=== PATIENT | male | born 1950 | race African-American/Black ===

== ENCOUNTER 2016-12-19 11:08 | Inpatient (IN) | payer OTHER ==
[~2016-12-19] VITALS: Ht 175.3 cm; Wt 93.0 kg
[2016-12-19 11:24] VITALS: BP 153/82; PULSE 80; RESP 20; TEMP 97; O2SAT 95
--- NOTE | 2016-12-19 11:32 | NUR ---
Pt placed to ER waiting room in stable condition with family member.
--- NOTE | 2016-12-19 11:54 | NUR ---
Pt placed to ER bed 07 and to gown. Pt report given to MONIQUE Correa.
[2016-12-19] MEDS ORDERED: NS 500 ML IV SCH (13:09)
--- NOTE | 2016-12-19 13:23 | NUR ---
IV WAS STARTED ON LEFT FOREARM 20G, FLUSHED WELL WITH NO NOTED INFILTRATION. PATIENT IS ALERT AND ORIENTED IN STABLE CONDITION AT THIS TIME.
--- NOTE | 2016-12-19 13:23 | NUR ---
ER at bedside examining patient.
[2016-12-19 13:33] LABS: BASOPHILS % (AUTO) 0.3 % (0.0-2.0); EOSINOPHILS # (AUTO) 0.1 K/uL (0.0-0.4); EOSINOPHILS % (AUTO) 1.5 % (0.0-4.0); LYMPHOCYTES # (AUTO) 1.8 K/uL (1.0-5.5); LYMPHOCYTES % (AUTO) 17.8 % (20.5-51.5); MEAN CORPUSCULAR HEMOGLOBIN 27 pg (27-31); MEAN CORPUSCULAR HGB CONC 33 % (32-36); MEAN CORPUSCULAR VOLUME 83 fL (79.0-98.0); MONOCYTES # (AUTO) 0.9 K/uL (0.0-1.0); MONOCYTES % (AUTO) 9.2 % (1.7-9.3); NEUTROPHILS # (AUTO) 7.1 K/uL (1.8-7.7); NEUTROPHILS % (AUTO) 71.2 % (40.0-70.0); PLATELET COUNT (AUTO) 240 K/uL (130-430); RED BLOOD CELL COUNT(AUTO) 2.53 MIL/uL (4.2-6.2); WHITE BLOOD COUNT (AUTO) 9.9 K/uL (4.8-10.8)
[2016-12-19 13:39] LABS: HEMOGLOBIN 6.9 g/dL (14.0-18.0)
--- NOTE | 2016-12-19 13:40 | NUR ---
Pt off the unit for CT
[2016-12-19 13:42] LABS: CALCIUM 8.3 mg/dL (8.4-11.0); CREATININE 2.11 mg/dL (0.55-1.30); POTASSIUM 4.3 mmol/L (3.5-5.1)
[2016-12-19 13:44] LABS: PROTHROMBIN TIME 11.3 SECS (9.5-12.5)
[2016-12-19 13:46] LABS: ALBUMIN 3.1 g/dL (3.4-4.8); TOTAL BILIRUBIN 0.3 mg/dL (0.0-1.0); TOTAL PROTEIN, SERUM 6.3 g/dL (6.4-8.3)
[2016-12-19] MEDS ORDERED: ATEN50TA PO (15:13)
[2016-12-19] MEDS ORDERED: FENO150C4 PO (15:13)
[2016-12-19] MEDS ORDERED: NPH,100V SUBCUT (15:13)
[2016-12-19] MEDS ORDERED: POTA20TA83 PO (15:13)
[2016-12-19] MEDS ORDERED: ISOS30TA PO (15:13)
[2016-12-19] MEDS ORDERED: HYDR100T25 PO (15:13)
[2016-12-19] MEDS ORDERED: BENA20TA2 PO (15:13)
[2016-12-19] MEDS ORDERED: FURO40SO5 PO (15:13)
[2016-12-19] MEDS ORDERED: INSU100V7 SUBCUT (15:13)
[2016-12-19] MEDS ORDERED: HYDR-3111 PO (15:13)
[2016-12-19] MEDS ORDERED: AMLO10TA88 PO (15:13)
[2016-12-19] MEDS ORDERED: ASPI81TA2 PO (15:13)
[2016-12-19] MEDS ORDERED: MORP20SY PO (15:13)
[2016-12-19] MEDS ORDERED: PRAV40TA63 PO (15:13)
[2016-12-19] MEDS ORDERED: GABA300S PO (15:13)
--- NOTE | 2016-12-19 15:13 | NUR ---
Medication reconciliation completed with information provided by patient . Any prior medication reconciliation on file was reviewed and corrected.
--- NOTE | 2016-12-19 15:20 | NUR ---
Patient will be admitted to care of Dr Rossi . Admitted to Tele in unit. Will go to room 119B . Belongings list completed. Summary report printed. Report given to Abner AMAYA
--- NOTE | 2016-12-19 15:30 | NUR ---
ADMISSION NOTE Received patient from ER via gurney. Patient admitted with diagnosis of GI bleed. Patient is awake, alert, oriented X 4. Patient oriented to hospital room, call light, toileting, pain management and safety-teach back done. Patient informed that Sunny will be RN nurse and that their room number is 118B. Personal belongings checked and Belongings List documented. Call light within reach.
--- NOTE | 2016-12-19 16:01 | NUR ---
GI Consult: Dr. Durbin on floor and aware of consult. (GI bleed/Dr. Sanchez)
[2016-12-19 16:13] VITALS: BP 155/87; PULSE 76; RESP 18; TEMP 98.3; O2SAT 97
[2016-12-19 16:48] LABS: BILIRUBIN,URINE NEGATIVE (NEGATIVE); BLOOD, URINE NEGATIVE (NEGATIVE); CLARITY/URINE CLEAR (CLEAR); COLOR,URINE YELLOW (YELLOW); GLUCOSE,URINE NEGATIVE (NEGATIVE); KETONES,URINE NEGATIVE (NEGATIVE); LEUKOCYTE ESTERASE ,URINE NEGATIVE (NEGATIVE); NITRITE, URINE NEGATIVE (NEGATIVE); PH,URINE 5.5 (5.0-8.0); PROTEIN URINE NEGATIVE (NEGATIVE); UROBILINOGEN,URINE 0.2 (0.2-1.0)
[2016-12-19] MEDS ORDERED: DEXTROSE 50% JECT 50 ML DISP.SYRIN IVP PRN (17:00)
[2016-12-19] MEDS ORDERED: BISACODYL 5 MG TABLET.DR (DULCOLAX) PO ONE (17:00)
[2016-12-19] MEDS ORDERED: INSULIN REGULAR, HUMAN 100 UNITS/ML, 10 ML VIAL (novoLIN R) SUBCUT PRN (17:00)
[2016-12-19] MEDS: D5NS 1,000 ML IV SCH (17:29)
--- NOTE | 2016-12-19 17:30 | NUR ---
NOTES PT IN BED, PT ALERT AND ORIENTED, REMINDED PT THAT HE WILL GET BLOOD TRANSFUSION TONIGHT AND ALSO WILL BE NPO AT MIDNIGHT IN PREPARATION FOR HIS COLONOSCOPY IN AM. PT VERBALIZED UNDERSTANDING.
[2016-12-19] MEDS ORDERED: GOLYTELY / COLYTE SOLUTION 4 LITERS PO ONE (18:00)
--- NOTE | 2016-12-19 18:12 | NUR ---
BLOOD SUGAR Blood sugar was checked and read 58. It was rechecked and the new value was 68. Patient is slightly lethargic, but otherwise nonsymptomatic. Patient D50 given as per PRN orders. Will continue to monitor.
--- NOTE | 2016-12-19 18:24 | NUR ---
CLOSING NOTES PT IN BED, GIVEN D50 50 ML FOR BS OF 68 EARLIER, BLOOD SUGAR THIS TIME IS 265. PT REMAINS ALERT AND ORIENTED, IV FLUID RUNNING WELL. PT STARTED GOLYTELY. WILL ENDORSE TO NIGHT RN.
--- NOTE | 2016-12-19 20:00 | NUR ---
Initial note A/O x 3, no SOB, no chest pain, c/o back pain @5/10. Skin warm to touch, IV at L AC, continued D5 NS @ 100 ml/hr. +1 edema bilateral feet with +2 pedal pulses. Patient needed one person assistance/supervision for ambulation. Clear lung sounds and active bowel sounds. Patient will have colonoscopy tomorrow (12/20/2016). Patient is taking Golytely, and had bloody liquid stools. Patient is aware he will be NPO after midnight. Due to HgB 6.9, patient is aware he will receive 2 units blood transfusion. Call light within reach, education provided, will continue to monitor patient.
--- NOTE | 2016-12-19 21:05 | NUR ---
First PRBC started. No reaction noted at 2049 and 2104. Informed patient to use call light for BSC use or any other concern. Call light within reach. Will continue to monitor patient.
[2016-12-19 21:09] VITALS: BP 177/92; PULSE 98; RESP 18; TEMP 98; O2SAT 97
[2016-12-19] MEDS: PANTOPRAZOLE SODIUM 40 MG/VIAL (PROTONIX) IVP SCH (21:38)
--- NOTE | 2016-12-19 21:39 | NUR ---
MD GIL CALLED [facility] AT SPOKE WITH DR.AZAB LUCIANO AMANY HANDS ASSEMBLER.
--- NOTE | 2016-12-19 22:00 | NUR ---
Initial note A/O x 3, no SOB, no chest pain, c/o back pain @5/10. Skin warm to touch, IV at L AC, continued D5 NS @ 100 ml/hr. Patient is taking Golytely, and had bloody liquid stools. Patient is aware he will be NPO after midnight. Blood transfusion continued, no reaction noted. Call light within reach, education provided, will continue to monitor patient.
--- NOTE | 2016-12-19 22:05 | NUR ---
Dr. Santillan called back regarding medications Orders: Clonidine 0.6 mg PO Q6H PRN for SBP > 160. Tylenol 650 mg O Q6H PRN for mild pain (1-3) or fever. Hydrocodone/Acetaminophen 7.5/325 mg PO Q12H PRN for moderate pain. Morphine 15 mg PO Q12H at 0000 and 1200. Patient is aware of the new orders.
[2016-12-19] MEDS ORDERED: ACETAMINOPHEN 325 MG TABLET PO PRN (22:15)
[2016-12-19] MEDS ORDERED: cloNIDine HCL 0.1 MG TABLET PO PRN (22:15)
[2016-12-19] MEDS ORDERED: MORPHINE SULFATE 15 MG TABLET.SA PO ONE (23:00)
--- NOTE | 2016-12-19 23:55 | NUR ---
Blood sugar 63 Patient denied any s/s of hypoglycemia. Patient stated he did not eat a lot today. Plumas juice (100 ml) x 2 and one Jell-O given. Will reassess patient blood sugar.
[2016-12-20] VITALS (7 sets, daily range): BP systolic 129–198; BP diastolic 81–104; PULSE 67–83; RESP 14–21; TEMP 97.6–98.8; O2SAT 96–99; Ht 175.3 cm; Wt 93.0 kg
--- NOTE | 2016-12-20 00:05 | NUR ---
Second PRBC Started second PRBC at 0005. Patient is aware of s/s of reactions. Still no s/s of hypoglycemia. Will stay with patient and monitor him.
--- NOTE | 2016-12-20 00:30 | NUR ---
Rounds Patient is resting in bed, but still went to BSC for BM. Bloody liquid BM noted. Rechecked blood sugar, 103. No s/s of hypoglycemia. Patient is aware he will be NPO through the night. Continued blood transfusion, no s/s of reactions. Call light within reach, will continue to monitor patient.
--- NOTE | 2016-12-20 02:05 | NUR ---
Rounds Patient is sleeping in bed. SN woke up patient, and patient stated he still went to BSC for BM once a while, and then patient went back to sleep. Some bloody liquid noted in the BSC. No s/s of hypoglycemia. Denied pain. Call light within reach, will continue to monitor patient.
[2016-12-20] MEDS: D5NS 1,000 ML IV SCH ×2 (03:18→22:46)
--- NOTE | 2016-12-20 04:15 | NUR ---
Rounds Patient is sleeping in bed. No SOB, no chest pain, no grimacing, no s/s of hypoglycemia. Call light within reach, will continue to monitor patient.
[2016-12-20] MEDS: hydrALAZINE HCL 20 MG/ML VIAL IVP PRN ×3 (06:18→20:51)
--- NOTE | 2016-12-20 06:20 | NUR ---
Closing note Patient is resting in bed. No SOB, no chest pain, denied pain, no s/s of hypoglycemia. Hydralazine IVP given due to BP 185/91. Patient is aware to be NPO and will have colonoscope later. Call light within reach, will give report to incoming nurse.
[2016-12-20 06:28] LABS: HEMATOCRIT 23.7 % (36-54)
[2016-12-20 06:36] LABS: INR 1.1 (0.80-1.20); PROTHROMBIN TIME 11.6 SECS (9.5-12.5)
[2016-12-20 07:40] LABS: IRON (SERUM) 51 mcg/dL (59-158); TOTAL IRON BIND. CAPACITY 240 ug/dL (250-450)
--- NOTE | 2016-12-20 08:00 | NUR ---
AM Initial Notes Pt aaox4 with complaints of mild pain to back but feels comfortable. No distress noted. Pt is NPO for colonoscopy today. No bloody stools noted. Blood pressure is elevated 171/81. coil rewind machine operator in place. Will medicate with Clonidine. Educated with fall and safety precautions. Pt refused to have bed alarm armed because he frequently goes to the bathroom. Bedside commode in place also. Encouraged to call for assistance. Call light within reach. Will monitor.
[2016-12-20] MEDS: MORPHINE SULFATE 15 MG TABLET.SA PO SCH ×2 (08:57→20:33)
[2016-12-20] MEDS: cloNIDine HCL 0.1 MG TABLET PO PRN ×2 (08:57→18:41)
--- NOTE | 2016-12-20 09:00 | NUR ---
Education Medicated patient with scheduled 0900 medications. MS Contin was administered. Educated about fall and safety precautions. Encouraged to call for assistance. Call light within reach. Will monitor.
--- NOTE | 2016-12-20 10:00 | NUR ---
Resting Pt asleep. No signs of facial grimacing for pain or discomfort. No distress or active bleeding noted. Will monitor.
[2016-12-20] MEDS: PANTOPRAZOLE SODIUM 40 MG/VIAL (PROTONIX) IVP SCH ×2 (10:17→20:33)
[2016-12-20 10:54] LABS: CALCIUM 8.3 mg/dL (8.4-11.0); CREATININE 1.85 mg/dL (0.55-1.30); POTASSIUM 3.7 mmol/L (3.5-5.1)
[2016-12-20 10:58] LABS: ALBUMIN 2.8 g/dL (3.4-4.8); TOTAL BILIRUBIN 0.3 mg/dL (0.0-1.0); TOTAL PROTEIN, SERUM 5.7 g/dL (6.4-8.3)
[2016-12-20 11:02] LABS: HEMATOCRIT 26.8 % (36-54); HEMOGLOBIN 8.7 g/dL (14.0-18.0)
--- NOTE | 2016-12-20 12:00 | NUR ---
Rounds Pt asleep but easily awakened. No complaints of pain or discomfort unless with movement. No distress noted. Encouraged to call for assistance. Call light within reach. Will monitor.
[2016-12-20] MEDS ORDERED: MIDAZOLAM HCL 5 MG/5 ML VIAL ONE (12:23)
[2016-12-20] MEDS ORDERED: SIMETHICONE 40 MG/0.6 ML ML ONE (12:24)
--- NOTE | 2016-12-20 13:00 | NUR ---
Elevevated BP Pt has elevated blood pressure 198/90. Informed RN for Apresoline IV medication administration. Will monitor.
--- NOTE | 2016-12-20 14:41 | NUR ---
GI Lab Pt leaving floor via w/c to GI Lab for colonoscopy. No distress noted.
[2016-12-20] MEDS: MIDAZOLAM HCL 5 MG/5 ML VIAL ONE ×3 (15:59→16:09)
[2016-12-20] MEDS: fentaNYL CITRATE/PF 100 MCG/2 ML AMP ONE ×3 (15:59→16:07)
--- NOTE | 2016-12-20 16:45 | NUR ---
Back from GI Pt back from GI lab for colonoscopy. No complaints of pain or discomfort. No distress noted. Pt feels tired and wants to sleep and rest. Kept comfortable. Encouraged to call for assistance. Call light within reach.
[2016-12-20 17:42] LABS: HEMATOCRIT 26.3 % (36-54); HEMOGLOBIN 8.8 g/dL (14.0-18.0)
--- NOTE | 2016-12-20 18:40 | NUR ---
Closing notes Pt asleep but easily awakened. Administered Clonidine for elevated blood pressure. No active bleeding noted. Encouraged to call for assistance. Will endorse care to incoming nurse.
--- NOTE | 2016-12-20 19:30 | NUR ---
INITIAL NOTE Patient in bed at this time resting, respirations even and unlabored. No acute distress noted at this time. Family at bedside. IV site patent with no signs or symptoms of infiltration noted. Vital signs stable, increased blood pressure noted. Patient states his blood pressure always runs high. Call light in hand. Educated patient on using call light for assistance, verbalized understanding. Fall and safety precautions in place. Will continue to monitor.
[2016-12-20] MEDS: ANUSOL 1 EA SUPP.RECT (PREPARATION H) RC SCH (20:33)
--- NOTE | 2016-12-20 21:53 | NUR ---
BT INITIATION: Consent signed per patient agreeing to administration of blood. Blood has been type and crossmatched. Blood sent from blood bank. Information on unit of blood checked against patient wristband at bedside by two nurses. All information matches. Patient or responsible green party informed of potential complications associated with blood transfusion. Informed of possible transfusion reaction symptoms. Aware of need to notify nurse at once of itching, shortness of breath, flushing, feeling of impending doom, or other symptoms not previously present. Vital signs taken within 5 minutes prior to initiation of transfusion. RN will remain with patient for first 15 minutes of transfusion at which time vital signs will be re-assessed.
--- NOTE | 2016-12-20 22:08 | NUR ---
15 min blood transfusion Patient resting in bed at this time. Patient showing stable vital signs. No signs or symptoms of adverse reaction at this time. Denies any chills, flank pain, shortness of breath, etc. Call light in hand, educated patient on using call light for assistance. Fall and safety precautions in place. Will continue to monitor.
--- NOTE | 2016-12-21 00:30 | NUR ---
OPENING NOTES RECEIVED REPORT FROM LUCRETIA AT BEDSIDE. PATIENT RECEIVING BLOOD TRANSFUSION. PATIENT TOLERATING TRANSFUSION WELL. NO SIGNS OR SYMPTOMS OF ACUTE DISTRESS NOTED. BED IN LOWEST POSITION, BED ALARM ON, CALL LIGHT WITHIN REACH. WILL CONTINUE TO MONITOR FREQUENTLY.
--- NOTE | 2016-12-21 00:30 | NUR ---
RN NOTE Endorsed patient to edgardo AMAYA. Patient is still receiving bloods transfusion. Continues to tolerate well. Respirations even and unlabored. No acute distress noted at this time. Call light in hand. Fall and safety precautions in place.
[2016-12-21] MEDS: cloNIDine HCL 0.1 MG TABLET PO PRN ×2 (00:39→09:13)
--- NOTE | 2016-12-21 00:54 | NUR ---
BLOOD SUGAR ACCUCHECK PERFORMED, BLOOD SUGAR IS 140, DOES NOT REQUIRE COVERAGE. SKIN IS DRY AND WARM. NO SIGNS OF HYPOGLYCEMIA OR HYPERGLYCEMIA NOTED.
--- NOTE | 2016-12-21 01:00 | NUR ---
BLOODY STOOL PATIENT HAD BLOODY LOOSE STOOL. ASSISTED PATIENT BACK TO BED. BED ALARM SET, BED IN LOWEST POSITION, CALL LIGHT WITHIN REACH.
--- NOTE | 2016-12-21 01:16 | NUR ---
BLOOD TRANSFUSION COMPLETE BLOOD TRANSFUSION IS COMPLETE. PATIENT TOLERATED WELL. VITAL SIGNS ARE 125/63 bp, 75 hr, 97.5 TEMP, 100% O2, AND 20 rESPIRATIONS. VITAL SIGNS NO SIGNS OR SYMPTOMS OF ACUTE DISTRESS NOTED. PATIENT SLEEPING, AUDIBLE SNORING WITH VISIBLE RISE AND FALL OR CHEST. FALL PRECAUTIONS IN PLACE.
[2016-12-21 03:01] LABS: HEMOGLOBIN 7.9 g/dL (14.0-18.0)
--- NOTE | 2016-12-21 03:15 | NUR ---
ROUNDS PATIENT AWAKE AND ALERT. SITTING UP WATCHING TV AND IN GOOD SPIRITS. NO SIGNS OR SYMPTOMS OF DISTRESS NOTED. BED IN LOWEST POSITION, CALL LIGHT WITHIN REACH. WILL CONTINUE TO MONITOR.
[2016-12-21 03:44] VITALS: BP 150/84; PULSE 68; RESP 18; TEMP 97.2; O2SAT 98
--- NOTE | 2016-12-21 04:30 | NUR ---
ROUNDS PATIENT SLEEPING. RISE AND FALL OF CHEST VISIBLE, PATIENT SNORING. NO SIGNS OR SYMPTOMS OF DISTRESS NOTED. BED IN LOWEST POSITION, CALL LIGHT WITHIN REACH. WILL CONTINUE TO MONITOR.
--- NOTE | 2016-12-21 06:33 | NUR ---
NOTES DIRECTOR BEHAVIORAL HEALTH AT BEDSIDE WITH PATIENT. PATIENT SHOWS NO S/S OF DISTRESS NOTED. BED IN LOWEST POSITION, CALL LIGHT WITHIN IN REACH. ALL NEEDS MET THROUGHOUT SHIFT. WILL ENDORSE CARE TO DAY SHIFT NURSE.
--- NOTE | 2016-12-21 06:44 | NUR ---
brent Sanchez/ nancy H/H after transfusion H/H after one unit of PRBC's decreased to 7.9/23.0. Bridget, from exchange, brent AVELAR.
--- NOTE | 2016-12-21 06:57 | NUR ---
DR SARA RUIZ CALLED TO ORDER 2 UNITS PACKED RBC'S STAT.
--- NOTE | 2016-12-21 07:02 | NUR ---
CLOSING NOTE PATIENT IS RESTING. LINENS CHANGED. PRBC'S ORDERED. NO SIGNS OF ACUTE DISTRESS NOTED. WILL ENDORSE CARE TO DAY SHIFT NURSE.
--- NOTE | 2016-12-21 07:20 | NUR ---
Initial Note Received patient from police shift commander nurse, patient is alert and oriented x4, no signs of distress, no complaints of pain at this time, assessment complete, patient currently has IV on left forearm gauge 22, updated patient on plan to received 2 more units of blood, patient verbalized understanding, instructed patient to use call powell if assistance is needed, patient verbalized understanding, call powell left in patient's hand, bed in lowest position, two side rails up, fall precautions in place, will continue to monitor patient.
[2016-12-21 08:00] VITALS: BP 167/63; PULSE 77; RESP 16; TEMP 98.3; O2SAT 99
[2016-12-21 08:36] LABS: BASOPHILS % (AUTO) 0.3 % (0.0-2.0); EOSINOPHILS # (AUTO) 0.1 K/uL (0.0-0.4); EOSINOPHILS % (AUTO) 1.1 % (0.0-4.0); HEMATOCRIT 24.4 % (36-54); HEMOGLOBIN 7.9 g/dL (14.0-18.0); LYMPHOCYTES # (AUTO) 1.2 K/uL (1.0-5.5); LYMPHOCYTES % (AUTO) 16.4 % (20.5-51.5); MEAN CORPUSCULAR HEMOGLOBIN 27 pg (27-31); MEAN CORPUSCULAR HGB CONC 32 % (32-36); MEAN CORPUSCULAR VOLUME 85 fL (79.0-98.0); MONOCYTES # (AUTO) 0.4 K/uL (0.0-1.0); NEUTROPHILS # (AUTO) 5.8 K/uL (1.8-7.7); NEUTROPHILS % (AUTO) 76.2 % (40.0-70.0); PLATELET COUNT (AUTO) 205 K/uL (130-430); RED BLOOD CELL COUNT(AUTO) 2.89 MIL/uL (4.2-6.2); RED CELL DISTRIBUTION WIDTH 14.8 % (9.0-15.0); WHITE BLOOD COUNT (AUTO) 7.5 K/uL (4.8-10.8)
[2016-12-21] MEDS: PANTOPRAZOLE SODIUM 40 MG/VIAL (PROTONIX) IVP SCH ×2 (09:08→20:20)
[2016-12-21] MEDS: MORPHINE SULFATE 15 MG TABLET.SA PO SCH ×2 (09:08→20:20)
--- NOTE | 2016-12-21 09:15 | NUR ---
MEDICATIONS Morning medications given to patient, educated patient on potential side effects of medications, patient verbalized understanding, instructed patient to use call powell if assistance is needed, patient verbalized understanding, call powell left in patient's hand, bed in lowest position, two side rails up, fall precautions in place, will continue to monitor patient.
[2016-12-21 09:21] LABS: CALCIUM 8.5 mg/dL (8.4-11.0); CREATININE 1.9 mg/dL (0.55-1.30); POTASSIUM 3.9 mmol/L (3.5-5.1)
[2016-12-21 09:27] LABS: FOLATE (FOLIC ACID) 10.2 ng/mL (>3.0)
[2016-12-21] MEDS: hydrALAZINE HCL 20 MG/ML VIAL IVP PRN (10:43)
--- NOTE | 2016-12-21 10:45 | NUR ---
RN ROUNDS PATIENT'S BLOOD PRESSURE IS CURRENTLY ELEVATED, WILL GIVE PRN MEDICATIONS BEFORE STARTING BLOOD TRANSFUSION, PATIENT STATES THAT IT IS NORMAL FOR BLOOD PRESSURE TO BE ELEVATED, NO COMPLAINTS OF PAIN OR DISCOMFORT, NO SIGNS OF DISTRESS, CALL MULLER WITHIN REACH OF PATIENT'S HAND, BED ALARM ON, FALL PRECAUTIONS IN PLACE, WILL CONTINUE TO MONITOR PATIENT.
--- NOTE | 2016-12-21 11:40 | NUR ---
BT INITIATION: Consent signed per patient agreeing to administration of blood. Blood has been type and crossmatched. Blood sent from blood bank. Information on unit of blood checked against patient wristband at bedside by two nurses. All information matches. Patient informed of potential complications associated with blood transfusion. Informed of possible transfusion reaction symptoms. Aware of need to notify nurse at once of itching, shortness of breath, flushing, feeling of impending doom, or other symptoms not previously present. Vital signs taken within 5 minutes prior to initiation of transfusion. RN will remain with patient for first 15 minutes of transfusion at which time vital signs will be re-assessed.
[2016-12-21] MEDS: HYDROcodone/ACETAMIN 7.5-325 MG TAB PO PRN (11:48)
[2016-12-21 12:00] VITALS: BP 155/73; PULSE 76; RESP 18; TEMP 98.2; O2SAT 97
--- NOTE | 2016-12-21 13:10 | NUR ---
RN ROUNDS Patient is currently resting in bed, family member at bedside, patient is still receiving blood transfusion, tolerating well, no signs of distress, no complaints of pain or discomfort, call powell left in patient's hand, bed in lowest position, two side rails up, fall precautions in place, will continue to monitor patient.
--- NOTE | 2016-12-21 15:30 | NUR ---
RN ROUNDS PATIENT IS CURRENTLY RESTING IN BED, SECOND UNIT OF BLOOD IS CURRENTLY TRANSFUSING, PATIENT IS TOLERATING WELL, NO SIGNS DISCOMFORT, NO COMPLAINTS OF SOB OR PAIN, REINSTRUCTED PATIENT IF HE FEELS ANY DIFFERENT TO CALL, PATIENT VERBALIZED UNDERSTANDING, CALL MULLER WITHIN REACH OF PATIENT'S HAND, BED ALARM ON, FALL PRECAUTIONS IN PLACE, WILL CONTINUE TO MONITOR PATIENT.
--- NOTE | 2016-12-21 16:05 | NUR ---
RN ROUNDS BLOOD TRANSFUSION IS COMPLETE, POST TRANSFUSION VITALS TAKEN AND RECORDED, PATIENT TOLERATED WELL, NO SIGNS OF REACTION NOTED, PATIENT DOES NOT COMPLAIN OF ANY PAIN, DISCOMFORT OR SHORTNESS OF BREATH, WILL CONTINUE TO MONITOR PATIENT, FALL PRECAUTIONS IN PLACE,
[2016-12-21 16:45] VITALS: BP 174/60; PULSE 58; RESP 20; O2SAT 97
--- NOTE | 2016-12-21 17:43 | NUR ---
RN ROUNDS PATIENT IS CURRENTLY RESTING IN BED WITH EYES CLOSED, SECOND UNIT OF BLOOD IS STILL TRANSFUSING, PATIENT IS TOLERATING WELL, NO SIGNS OF DISCOMFORT, CALL MULLER WITHIN REACH OF PATIENT'S HAND, BED ALARM ON, FALL PRECAUTIONS IN PLACE, WILL CONTINUE TO MONITOR PATIENT.
--- NOTE | 2016-12-21 18:55 | NUR ---
CLOSING NOTE PATIENT IS CURRENTLY RESTING IN BED, NO SIGNS OF DISTRESS, NO COMPLAINTS OF PAIN, ALL NEEDS MET, WILL ENDORSE TO SOLAR INSTALLATION MANAGER NURSE THAT LAB IS COMING AROUND 1900 TO DRAW BLOOD FOR H&H, AND TO FOLLOW UP WITH LAB RESULTS, BED LEFT IN LOWEST POSITION, CALL MULLER WITHIN REACH, TWO SIDE RAILS UP, FALL PRECAUTION IN PLACE
[2016-12-21 19:29] LABS: HEMATOCRIT 24.3 % (36-54); HEMOGLOBIN 8.4 g/dL (14.0-18.0)
--- NOTE | 2016-12-21 20:00 | NUR ---
OPENING ASSESSMENT PATIENT ALERT/ORIENTEDX4. SPEECH IS CLEAR AND APPROPRIATE. STATES PAIN IS 4/10 IN BACK. HAS MS CONTIN ORDERED FOR 2100. DENIES DIZZINESS. LUNGS CLEAR BILATERALLY. O2 SAT. ON R/A IS 98%. NO SOB NOTED. HAS LFA 22 G IV SITE IS CLEAR AND PATENT. TOLERATING CLEAR LIQUID DIET, NO REDS, NO NAUSEA NOTED. VOIDING CLEAR YELLOW. FALL PRECAUTIONS. SIDE RAILS UP X2 WITH BED IN LOW POSITION. INFORMED PATIENT NOT TO GET OUT OF BED WITH ASSIST AND CALL NURSE FOR ALL NEEDS. CALL LIGHT WITHIN EASY ACCESS.
[2016-12-21] MEDS: ANUSOL 1 EA SUPP.RECT (PREPARATION H) RC SCH (20:20)
[2016-12-21 21:51] VITALS: BP 158/78; PULSE 79; RESP 18; TEMP 97.3; O2SAT 98
--- NOTE | 2016-12-21 21:59 | NUR ---
ROUNDS PATIENT RESTING QUIETLY @ THIS TIME. NO DISTRESS NOTED.
[2016-12-21 23:24] LABS: HEMATOCRIT 23.5 % (36-54)
[2016-12-21 23:43] VITALS: BP 155/77; PULSE 76; RESP 18; TEMP 97.4; O2SAT 96
--- NOTE | 2016-12-21 23:54 | NUR ---
NOTES PATIENT WITH SMALL BLOODY STOOL. DENIES DIZZINESS WHEN ON BEDSIDE COMMODE. PATIENT ASSISTED BACK IN BED. CONTINUES ON FALL PRECAUTIONS.
--- NOTE | 2016-12-22 00:05 | NUR ---
MD GIL CALLED [facility] AT SPOKE WITH DR.AZAB HILL AMANY VP AD [employer] AND [employer]ING.
--- NOTE | 2016-12-22 00:21 | NUR ---
DR. MARYLU VALERO NOTIFIED THAT PATIENTS HGB. @ 12/22 1919 WAS 8.4 AND @ 2314 HGB. WAS 8.0. ORDERED CBC FOR AM.
--- NOTE | 2016-12-22 01:54 | NUR ---
NOTES REPORT GIVEN TO HORACE AMAYA. PATIENT WITHOUT DISTRESS @ THIS TIME.
--- NOTE | 2016-12-22 02:00 | NUR ---
initial note pt. received aaox4. no s/s of sob or distress noted. iv access noted to left forearm 20 gauge, saline lock. no redness or swelling to the site. pt. able to ambulate with steady gait, with assistance. encouraged to call for assistance. verbalizes understanding. plan of care discussed. pt. verbalizes understanding. will continue to monitor for any changes. safety and fall precautions in place. call light in reach. bed in lowest, locked position.
[2016-12-22] MEDS: HYDROcodone/ACETAMIN 7.5-325 MG TAB PO PRN ×3 (02:27→21:55)
--- NOTE | 2016-12-22 02:33 | NUR ---
ROUNDS PT STATES HE IS HAVING LEFT LEG PAIN. MEDICATION GIVEN FOR PAIN, WILL REASSESS. ASSISTED PT. TO THE RESTROOM, ABLE TO AMBULATE WITH STEADY GAIT. SMALL AMOUNT OF BLOOD NOTED ON MONALISA PAD ON BED. PT. HAD ONE BM, BLOOD NOTED. PT. ASSISTED BACK TO BED. WILL CONTINUE TO MONITOR. SAFETY AND FALL PRECAUTIONS IN PLACE. CALL LIGHT IN REACH, BED IN LOWEST, LOCKED POSITION.
--- NOTE | 2016-12-22 04:00 | NUR ---
ROUNDS PROVIDED PT. WITH WARM TEA PER HIS REQUEST. STATES HE IS HAVING A HARD TIME FALLING ASLEEP, BUT THAT HE IS FEELING MUCH BETTER AT THIS MOMENT. WILL CONTINUE TO MONITOR FOR ANY CHANGES. SAFETY AND FALL PRECAUTIONS IN PLACE. CALL LIGHT IN REACH.
--- NOTE | 2016-12-22 04:50 | NUR ---
rn notes pt. MAR and order history show that pt. is to be receiving IV fluids, D5NS @ 100. Will start running fluids as ordered.
[2016-12-22] MEDS: D5NS 1,000 ML IV SCH ×2 (05:23→20:24)
[2016-12-22 05:32] VITALS: BP 127/79; PULSE 78; RESP 18; TEMP 96.9; O2SAT 99
--- NOTE | 2016-12-22 06:31 | NUR ---
CLOSING NOTE PT. RESTING QUIETLY IN BED. NO S/S OF SOB OR DISTRESS NOTED. PT. DENIES PAIN. MORNING ACCU CHECK DONE, BS WNL. NO COVERAGE NEEDED. IV FLUIDS INFUSING WELL ORDERED. ALL NECESSARY NEEDS WERE MET. SAFETY AND FALL PRECAUTIONS WERE MAINTAINED. WILL ENDORSE CARE TO AM NURSE. CALL LIGHT IN REACH. BED IN LOWEST, LOCKED POSITION.
[2016-12-22 08:00] VITALS: BP 157/89; PULSE 84; RESP 14; TEMP 97.6; O2SAT 99
--- NOTE | 2016-12-22 08:00 | NUR ---
Initial notes: pt awake,alert and oriented. Stable. Discussed plan of care. call light within reach. report received at bedside.
[2016-12-22] MEDS: PANTOPRAZOLE SODIUM 40 MG/VIAL (PROTONIX) IVP SCH ×2 (08:15→20:24)
[2016-12-22] MEDS: MORPHINE SULFATE 15 MG TABLET.SA PO SCH ×2 (08:15→20:25)
[2016-12-22 08:35] LABS: BASOPHILS % (AUTO) 0.3 % (0.0-2.0); EOSINOPHILS # (AUTO) 0.1 K/uL (0.0-0.4); EOSINOPHILS % (AUTO) 1.1 % (0.0-4.0); HEMOGLOBIN 7.9 g/dL (14.0-18.0); LYMPHOCYTES # (AUTO) 1.4 K/uL (1.0-5.5); LYMPHOCYTES % (AUTO) 19.2 % (20.5-51.5); MEAN CORPUSCULAR HEMOGLOBIN 30 pg (27-31); MEAN CORPUSCULAR HGB CONC 34 % (32-36); MEAN CORPUSCULAR VOLUME 87 fL (79.0-98.0); MONOCYTES # (AUTO) 0.4 K/uL (0.0-1.0); MONOCYTES % (AUTO) 5.1 % (1.7-9.3); NEUTROPHILS # (AUTO) 5.5 K/uL (1.8-7.7); NEUTROPHILS % (AUTO) 74.3 % (40.0-70.0); PLATELET COUNT (AUTO) 168 K/uL (130-430); RED BLOOD CELL COUNT(AUTO) 2.64 MIL/uL (4.2-6.2); RED CELL DISTRIBUTION WIDTH 14.5 % (9.0-15.0); WHITE BLOOD COUNT (AUTO) 7.4 K/uL (4.8-10.8)
--- NOTE | 2016-12-22 11:46 | NUR ---
Surgical Consult: for Dr. Ratliff, regarding g.i. bleed, ordered by Dr. Sanchez, spoke with Maggie.
[2016-12-22 12:49] VITALS: BP 152/89; PULSE 83; RESP 17; TEMP 98.3; O2SAT 98
--- NOTE | 2016-12-22 13:20 | NUR ---
BT INITIATION: Consent signed per agreeing to administration of blood. Blood has been type and crossmatched. Blood sent from blood bank. Information on unit of blood checked against patient wristband at bedside by two nurses. All information matches. Patient or responsible green party informed of potential complications associated with blood transfusion. Informed of possible transfusion reaction symptoms. Aware of need to notify nurse at once of itching, shortness of breath, flushing, feeling of impending doom, or other symptoms not previously present. Vital signs taken within 5 minutes prior to initiation of transfusion. RN will remain with patient for first 15 minutes of transfusion at which time vital signs will be re-assessed.
--- NOTE | 2016-12-22 13:35 | NUR ---
15 min after BT: pt on bed.no shortness of breath. no itchiness. continue to monitor.
[2016-12-22] MEDS: cloNIDine HCL 0.1 MG TABLET PO PRN ×2 (13:45→21:54)
--- NOTE | 2016-12-22 15:26 | NUR ---
Mary stern scan: pt wheeled via W/C to nuclear med with NIKOLAS and nurse.
--- NOTE | 2016-12-22 18:45 | NUR ---
room: pt back in his room. Blood sugar check. no insulin needed.
--- NOTE | 2016-12-22 19:30 | NUR ---
closing notes: pt on bed resting. no distress noted. needs attended. call light within reach. report given at bedside.
--- NOTE | 2016-12-22 19:48 | NUR ---
OPENING ASSESSMENT PATIENT ALERT/ORIENTED X4. SPEECH IS CLEAR AND APPROPRIATE. NO RESPIRATORY DISTRESS NOTED. 02 SAT 98% ON R/A. ON CLEAR LIQUID DIET NO REDS. TOLERATING WELL. DENIES NAUSEA. HAS IV D5/.9NS INFUSING @ 100ML/HR. LFA 20G INTACT. VOIDING CLEAR YELLOW IN URINAL. CALL LIGHT WITHIN EASY ACCESS. INFORMED PATIENT TO CALL NURSE FOR ALL NEEDS AND NOT TO GET OUT OF BED WITHOUT ASSIST.
[2016-12-22 20:00] VITALS: BP 177/88; PULSE 89; RESP 20; TEMP 97.7; O2SAT 98
[2016-12-22] MEDS: ANUSOL 1 EA SUPP.RECT (PREPARATION H) RC SCH (20:25)
[2016-12-22] MEDS: hydrALAZINE HCL 20 MG/ML VIAL IVP PRN (20:26)
--- NOTE | 2016-12-22 20:50 | NUR ---
BT INITIATION: Consent signed per agreeing to administration of blood. Blood has been type and crossmatched. Blood sent from blood bank. Information on unit of blood checked against patient wristband at bedside by two nurses. All information matches. Patient or responsible democrat informed of potential complications associated with blood transfusion. Informed of possible transfusion reaction symptoms. Aware of need to notify nurse at once of itching, shortness of breath, flushing, feeling of impending doom, or other symptoms not previously present. Vital signs taken within 5 minutes prior to initiation of transfusion. RN will remain with patient for first 15 minutes of transfusion at which time vital signs will be re-assessed.
--- NOTE | 2016-12-22 22:10 | NUR ---
BLOODY STOOL PT. WITH LARGE BLOODY STOOL..
--- NOTE | 2016-12-22 23:15 | NUR ---
BLOOD TRANSFUSION FINISHED INFUSED I UNIT PRBC. NO ADVERSE REACTION NOTED @ THIS TIME. VITALS ARE STABLE.
[2016-12-22 23:47] VITALS: BP 138/89; PULSE 87; RESP 18; TEMP 97.9; O2SAT 96
--- NOTE | 2016-12-23 00:40 | NUR ---
NOTES REPORT GIVEN TO FAMILIA AMAYA. PATIENT WITH LARGE BLOODY STOOL. ASSISTED TO BEDSIDE COMMODE.
--- NOTE | 2016-12-23 01:10 | NUR ---
NOTES; RECEIVED REPORT FROM HARRY AMAYA. CHECKED ON PT, IN BED. NO ACUTE DISTRESS NOTED. STATED 5/10 LEFT ANKLE PAIN. WILL MEDICATE PT.
[2016-12-23 01:35] LABS: HEMATOCRIT 27.2 % (36-54); HEMOGLOBIN 8.8 g/dL (14.0-18.0)
[2016-12-23] MEDS: HYDROcodone/ACETAMIN 7.5-325 MG TAB PO PRN ×2 (01:35→12:05)
--- NOTE | 2016-12-23 01:38 | NUR ---
NOTES; NORCO 1TAB PO ADMINISTERED FOR LEFT ANKLE PAIN. WILL CONTINUE TO MONITOR.
--- NOTE | 2016-12-23 02:35 | NUR ---
NOTES; PT STATED EFFECTIVE PAIN MEDICATION.
--- NOTE | 2016-12-23 04:30 | NUR ---
NOTES; PATIENT RESTING QUIETLY @ THIS TIME. NO DISTRESS NOTED. SAFETY MEASURES IN PROGRESS.
[2016-12-23 04:45] VITALS: BP 160/86; PULSE 78; RESP 18; TEMP 97.5; O2SAT 97
--- NOTE | 2016-12-23 06:00 | NUR ---
NOTES; PATIENT RESTING QUIETLY @ THIS TIME. NO DISTRESS NOTED. ALL NEEDS ATTENDED. NPO MAINTAINED. DENIES AY PAIN AT THIS TIME. SAFETY MEASURES IN PROGRESS.
--- NOTE | 2016-12-23 07:05 | NUR ---
NOTES; PATIENT RESTING QUIETLY @ THIS TIME. NO DISTRESS NOTED. SAFETY MEASURES IN PROGRESS.
--- NOTE | 2016-12-23 07:20 | NUR ---
Initial notes: pt on bed resting. stable. i.v. access patent. discussed plan of care. call light within reach. report received at bedside.
[2016-12-23] MEDS: MORPHINE SULFATE 15 MG TABLET.SA PO SCH (08:05)
[2016-12-23] MEDS: PANTOPRAZOLE SODIUM 40 MG/VIAL (PROTONIX) IVP SCH (08:06)
[2016-12-23] MEDS: cloNIDine HCL 0.1 MG TABLET PO PRN (08:06)
--- NOTE | 2016-12-23 08:18 | NUR ---
EGD: pt wheeled to g.i. lab by staff for EGD.
[2016-12-23] MEDS ORDERED: MIDAZOLAM HCL 5 MG/5 ML VIAL ONE (08:34)
[2016-12-23] MEDS ORDERED: SIMETHICONE 40 MG/0.6 ML ML ONE (08:34)
[2016-12-23] MEDS: fentaNYL CITRATE/PF 100 MCG/2 ML AMP ONE ×3 (09:37→09:43)
[2016-12-23] MEDS: MIDAZOLAM HCL 5 MG/5 ML VIAL ONE ×4 (09:37→09:47)
--- NOTE | 2016-12-23 11:00 | NUR ---
Room: pt back in his room. Dr. Sanchez ordered pt to transfer to [facility]. remains NPO.
--- NOTE | 2016-12-23 11:05 | NUR ---
HCP/PA: Called RERE Ovalle made her aware of discharge to [facility]. Yamile stated [facility] [phone] on will call.
--- NOTE | 2016-12-23 12:06 | NUR ---
Blood sugar: 153mg/dl. insulin withheld due to pt NPO.
[2016-12-23 12:21] VITALS: BP 173/93; PULSE 85; RESP 18; TEMP 96.6; O2SAT 99
[2016-12-23 12:34] VITALS: BP 173/93; PULSE 85; RESP 18; TEMP 96.6; O2SAT 99
--- NOTE | 2016-12-23 13:00 | NUR ---
Nutrition F/U Admitting Diagnosis GI bleed, ARF Reviewed Pertinent Medical/Surgical Hx Patient Medical Record Primary RN Medical History Comment: Prostate CA w/ metastatic Dz, diverticulitis, DM, HTN per MD notes Subjective Information Pt seen resting in bed at time of RD visit. Pt reported that he had an EGD earlier today. Per MD notes, EGD revealed antral gastritis; normal jejunum w/ bile; no active bleeding was seen. Colonoscopy done on 12/20/16 revealed two polyps; anastomosis in the L quadrants; diverticulosis that is mild in the colon; and small internal hemorrhoids. Pt stated that he was able to tolerate broth and fruit ice last night at dinner while still on clear liquid diet. Note that pt has been on clear liquid/NPO status since admission (4 days). Per RN, pt is pending transfer to [facility] for further GI workup. Per surgical progress note 12/23/16, pt will need an angiogram at [facility]. Per EMR, PO Intakes: 42% average x3 meals. Abd is soft w/ active bowel sounds. I/O: 2080/800 (+1280 ml) per 12 hours. Pt is not yet meeting optimal nutritional needs. Pt is not appropriate for nutrition education. Current Diet Order/Nutrition Support Clear liquid, no red x3 days Patient/Significant Other Able To Verbalize Education Provided Not Indicated Pertinent Medications D5%/NaCl IV at 100 ml/hr (408 kcal/day) Pertinent Labs Hct 8.8 L, Hgb 27.2 L Height (Feet) 5 feet Height (Inches) 9.00 inches Weight (Pounds) 205 pounds (admission) Weight (Calculated Kilograms) 92.991140 kilograms Patient Weight 92.986 kg Body Mass Index 30.27 kg/m2 Usual Weight 205 lbs %UBW 100 %IBW 127 Coggon/Adjusted Body Weight IBW: 160 lb, 73 kg. 127% of IBW. Adj IBW (obesity): 171 lb, 78 kg Recent Weight Change No Weight Status Obese Gastrointestinal Symptoms Bleeding Last BM Dec 23, 2016 x3 Food Allergies No Usual Diet At Home Low sodium, basic DM diet Skin Integrity Comment: Nick scale: 19; no skin issues noted Current % PO Poor Estimated Energy Expenditure (kcals/day) 0393-7989 kcal/day (30-35 kcal/kg IBW for CA) Estimated Protein Required (g/day) 58-110 gm/day (1.2-1.5 gm/kg IBW for CA) Estimated Fluid Required (l/day) Per MD (ARF) Problem/Etiology/Signs/Symptoms Complicated GI function related to GI bleeding as evidenced by low Hgb/Hct lab values. *ongoing Increased nutritional needs related to metabolic demands as evidenced by estimated nutritional requirements for CA. *ongoing Expected Outcomes/Goals - Monitor appetite and PO intakes w/ goal of pt meeting at least 75% of estimated nutritional needs, labs trending WNL, normal GI function, and skin integrity/wt maintenance Dietitian Recommendations * Consider advance diet if/when medically appropriate (soft (low fiber/bland) diet) Follow Up High Risk: F/U in 2-3 days Follow Up By Dec 23, 2016
[2016-12-23] MEDS: D5NS 1,000 ML IV SCH (13:48)
--- NOTE | 2016-12-23 14:00 | NUR ---
rounds: pt sleeping. no distress noted.
--- NOTE | 2016-12-23 15:30 | NUR ---
[facility] communication: Report given to MONIQUE Farooq. as per conversation no schedule for procedure today. They will arrange when they will receive the pt. Ambulance will pick the pt at 18:00.
[2016-12-23] MEDS: hydrALAZINE HCL 20 MG/ML VIAL IVP PRN (15:33)
[2016-12-23 15:49] VITALS: BP 191/94; PULSE 70; RESP 15; TEMP 98.1; O2SAT 96
--- NOTE | 2016-12-23 17:35 | NUR ---
PT TRANSFERRED Report given to Oseas at [facility]. Transfer packet with Transfer Orders and Medication Reconciliation form given to EMT with report. Exitcare provided. [facility] ID band removed, replaced with ID band with pt's name and . IV catheter intact. All belongings sent with patient. Patient left floor via gurney escorted by EMT in no distress.
== END 2016-12-23 17:35 | disposition short-term general hospital (02) | DRG 377 ==
LOC: SED 11:08 → STU 15:15 → SMU 12-20 19:54
PROVIDERS: ADMIT Internal Medicine Hospice and Palliative Medicine; ATTEND Internal Medicine Hospice and Palliative Medicine
PROC: 30233N1 Transfusion of Nonautologous Red Blood Cells into Peripheral Vein, Percutaneous Approach (ICD-10-PCS; 2016-12-19)
PROC: 0DBL8ZX Excision of Transverse Colon, Via Natural or Artificial Opening Endoscopic, Diagnostic (ICD-10-PCS; 2016-12-20)
PROC: 0DBP8ZX Excision of Rectum, Via Natural or Artificial Opening Endoscopic, Diagnostic (ICD-10-PCS; principal; 2016-12-20 15:00)
PROC: 0DB68ZX Excision of Stomach, Via Natural or Artificial Opening Endoscopic, Diagnostic (ICD-10-PCS; 2016-12-23)
DX: K92.2 Gastrointestinal hemorrhage, unspecified (principal); N17.0 Acute kidney failure with tubular necrosis; I10 Essential (primary) hypertension; K62.1 Rectal polyp; K64.8 Other hemorrhoids; K63.5 Polyp of colon; K57.30 Diverticulosis of large intestine without perforation or abscess without bleeding; D64.9 Anemia, unspecified; K29.60 Other gastritis without bleeding; Z85.528 Personal history of other malignant neoplasm of kidney; Z90.5 Acquired absence of kidney; Z85.46 Personal history of malignant neoplasm of prostate
CPT/HCPCS: 36415; 43239; 45380; 78278-TC; 80048; 80053; 81003; 82607; 82746; 82962; 83540-TC; 83550-TC; 85018-TC; 85025; 85610-TC; 85730-TC; 86886; 86900; 86901; 86920; 88305; 88312; 88313; 93005; 93970; 96360; 99285; A9560; C9113; J0360; J1815; J2250; J3010; J7040; J7042; J7050; P9021